=== PATIENT | male | born 1985 | race Caucasian/White ===

== ENCOUNTER 2018-12-11 19:43 | Emergency (ER) | payer OTHER, SELFPAY ==
[2018-12-11 19:45] VITALS: BP 143/98; PULSE 110; RESP 18; TEMP 38.3; O2SAT 100
[2018-12-11 19:58] VITALS: TEMP 38.3
[2018-12-11] MEDS: ACETAMINOPHEN 325 MG TABLET 975 MG PO (19:58)
[2018-12-11] MEDS: SODIUM CHLORIDE 0.9% 1,000 ML 1000 ML IV (19:59)
[2018-12-11 20:17] LABS: Add Manual Diff / Slide Review NO; Basophils Absolute Auto 0 /uL (0-100); Basophils Percent Auto 0.4 % (0-2); Eosinophils Absolute Auto 200 /uL (0-450); Eosinophils Percent Auto 1.8 % (2-4); Hematocrit 44.8 % (41-53); Hemoglobin 15.9 g/dL (13.5-17.5); Lymphocytes Absolute Auto 1400 /uL (1100-4500); Lymphocytes Percent Auto 15.4 % (25-40); Mean Corpuscular HGB Conc 35.6 % (30-36); Mean Corpuscular Hemoglobin 30.4 PG (26-34); Mean Corpuscular Volume 85.5 fL (80-100); Monocytes Absolute Auto 500 /uL (0-900); Monocytes Percent Auto 5.4 % (3-14); Neutrophils Absolute Auto 6800 /uL (1500-7000); Platelet Count 169 X10^3/uL (150-400); Red Blood Cell Count 5.24 X10^6/uL (4.5-5.9); White Blood Cell Count 8.8 X10^3/uL (4.5-11.0)
[2018-12-11 20:27] LABS: PTT Partial Thromboplastin Tim 31 SECONDS (26.4-36.2)
[2018-12-11 20:29] LABS: Alanine Aminotransferase 13 IU/L (21-72); Albumin 4.6 g/dL (3.5-5.0); Albumin Globulin Ratio 1.4 (1.0-2.8); Alkaline Phosphatase 49 U/L (38-126); Aspartate Aminotransferase 22 IU/L (17-59); Bilirubin Total 0.9 mg/dL (0.2-1.3); Blood Urea Nitrogen 16 mg/dL (9-20); Calcium 9.3 mg/dL (8.4-10.2); Carbon Dioxide 30 mmol/L (22-32); Chloride 99 mmol/L (98-107); Estimated Glomerular Filt Rate > 60.0 mL/min (>60); Globulin 3.4 g/dL (1.7-4.1); Glucose 95 mg/dL (70-100); HEMOLYSIS < 15 (0-50); Lipase 76 U/L (23-300); Potassium 3.8 mmol/L (3.4-5.1); Sodium 139 mmol/L (137-145)
[2018-12-11 20:30] LABS: Lactate (Lactic Acid) 0.8 mmol/L (0.7-2.1)
--- NOTE | 2018-12-11 20:30 | ED.FEVER ---
HPI - Fever General Chief Complaint: Fever Stated Complaint: hot and swollen rt knee x2 days Time Seen by Provider: 12/11/18 19:50 Source: patient Mode of arrival: ambulatory Limitations: no limitations History of Present Illness HPI Narrative: Patient is a 33-year-old male who presents with some right knee pain and redness. He says it started a couple days ago it actually has got a little bit better. He noticed that it is red and that he had fever today. He actually febrile here. He denies any injury. He is walking on it, it is not painful to walk on. He has no numbness or tingling. He has not been doing any sort of work on his knees. 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 complaint: fever Onset (ago): day(s) Related Data Previous Rx's Medication Instructions Recorded sulfamethoxazole-trimethoprim 1 tab PO BID 7 Days #14 tab 12/11/18 [Bactrim DS] Allergies Allergy/AdvReac Type Severity Reaction Status Date / Time No Known Drug Allergies Allergy Verified 12/11/18 19:53 Review of Systems Review of Systems ROS Unobtainable: All systems reviewed & are unremarkable except as noted in HPI and below Constitutional Denies chills, Reports fever(s), Denies lethargy and Denies weakness Eyes Denies change in vision, Denies eye discharge, Denies irritation and Denies loss of vision ENT Ears, Nose, Mouth, and Throat: Denies change in voice, Denies neck pain and Denies sore throat Cardiovascular Denies chest pain, Denies irregular heart rhythm, Denies lightheadedness, Denies palpitations, Denies dyspnea, Denies dyspnea on exertion and Denies orthopnea Respiratory Denies cough, Denies dyspnea, Denies dyspnea on exertion and Denies wheezing Gastrointestinal Gastrointestinal: Denies abdominal pain, Denies change in bowel habits, Denies diarrhea, Denies nausea and Denies vomiting Genitourinary Denies hematuria, Denies flank pain, Denies urinary incontinence and Denies urinary urgency Musculoskeletal Reports as per HPI and Denies neck pain Integumentary/Breasts Reports as per HPI and Reports erythema Neurologic Denies loss of vision and Denies weakness Endocrine Denies palpitations Allergic/Immunologic Denies wheezing [facility] Medical History Patient denies significant medical history (Acute) Social History Smoking Status: Never smoker Social History Smoking Status: Never smoker Exam Initial Vital Signs Initial Vital Signs: Vital Signs Temperature 101 F H 12/11/18 19:45 Pulse Rate 110 H 12/11/18 19:45 Respiratory Rate 18 12/11/18 19:45 Blood Pressure 143/98 H 12/11/18 19:45 Pulse Oximetry 100 12/11/18 19:45 GENERAL: Well-appearing, well-nourished and in no acute distress. HEENT: Head atraumatic,EOMI, pupils reactive, face symmetric CARDIOVASCULAR: Regular rate and rhythm without murmurs, rubs or gallops. RESPIRATORY: Breath sounds equal bilaterally, no wheezes rales or rhonchi. ABDOMEN: Soft, nontender. Normoactive bowel sounds all 4 quadrants. No guarding or rebound. EXTREMITIES: Normal range of motion, no clubbing or edema. Neurovascularly intact Right knee is minimally swollen it is erythematous he has full flexion and extension is not tender to touch peripheral pulses are intact. He is weight-bearing. NEUROLOGICAL: Alert and oriented x4.Normal gait and speech. Cranial nerves II through XII grossly intact. SKIN: Right knee erythema no fluctuation warm to touch no other rashes Course Orders Ordered: ED Orders 12/11/18 19:58 Complete Blood Count AUTO DIFF Stat Comprehensive Metabolic Panel Stat Lactate (Lactic Acid) Stat Lipase Stat Partial Thromboplastin Time Stat Procalcitonin Stat Prothrombin Time INR Stat 12/11/18 20:33 Blood Culture Stat Discontinued Medications Acetaminophen (Tylenol) 975 mg PO NOW ONE Stop: 12/11/18 19:51 Last Admin: 12/11/18 19:58 Dose: 975 mg Sodium Chloride (Normal Saline 0.9%) 1,000 mls @ 1,000 mls/hr IV BOLUS ONE Stop: 12/11/18 20:49 Last Infusion: 12/11/18 21:00 Dose: 0 mls/hr Admin: 12/11/18 19:59 Dose: 1,000 mls/hr Trimethoprim/Sulfamethoxazole (Bactrim Ds Prepack) 1 bottle MISC SEEINSTR ONE Stop: 12/11/18 20:49 Last Admin: 12/11/18 20:56 Dose: 1 bottle Vital Signs - 8 hr 12/11/18 19:45 12/11/18 19:58 12/11/18 21:00 Temperature 101 F H 101 F H 100.4 F H Pulse Rate 110 H 88 Respiratory Rate 18 17 Blood Pressure 143/98 H Blood Pressure [Left Arm] 118/78 Pulse Oximetry 100 98 MDM - Fever Lab Data Attestation: I reviewed the patient's lab results. Result diagrams: 12/11/18 19:58 12/11/18 19:58 Lab Results 12/11/18 12/11/18 12/11/18 Range/Units 19:58 19:58 19:58 WBC 8.8 (4.5-11.0) X10^3/uL RBC 5.24 (4.5-5.9) X10^6/uL Hgb 15.9 (13.5-17.5) g/dL Hct 44.8 (41-53) % MCV 85.5 (80-100) fL MCH 30.4 (26-34) PG MCHC 35.6 (30-36) % RDW 13.0 (11.6-14.8) % Plt Count 169 (150-400) X10^3/uL Neut % (Auto) 77.0 H (50-75) % Lymph % (Auto) 15.4 L (25-40) % [place] % (Auto) 5.4 (3-14) % Eos % (Auto) 1.8 L (2-4) % Baso % (Auto) 0.4 (0-2) % Neut # (Auto) 6800 (1778-6416) /uL Lymph # (Auto) 1400 (9291-2997) /uL [place] # (Auto) 500 (0-900) /uL Eos # (Auto) 200 (0-450) /uL Baso # (Auto) 0 (0-100) /uL PT 12.0 (10.1-12.7) SECONDS INR 1.0 (0.9-1.3) APTT 31 (26.4-36.2) SECONDS Sodium (137-145) mmol/L Potassium (3.4-5.1) mmol/L Chloride (98-107) mmol/L Carbon Dioxide (22-32) mmol/L BUN (9-20) mg/dL Creatinine (0.66-1.25) mg/dL Estimated GFR (>60) mL/min BUN/Creatinine Ratio (6-22) Glucose (70-100) mg/dL Lactate (0.7-2.1) mmol/L Calcium (8.4-10.2) mg/dL Total Bilirubin (0.2-1.3) mg/dL AST (17-59) IU/L ALT (21-72) IU/L Alkaline Phosphatase (38-126) U/L Total Protein (6.3-8.2) g/dL Albumin (3.5-5.0) g/dL Globulin (1.7-4.1) g/dL Albumin/Globulin Ratio (1.0-2.8) Lipase (23-300) U/L Procalcitonin 0.11 (<0.5) ng/mL 12/11/18 12/11/18 Range/Units 19:58 19:58 WBC (4.5-11.0) X10^3/uL RBC (4.5-5.9) X10^6/uL Hgb (13.5-17.5) g/dL Hct (41-53) % MCV (80-100) fL MCH (26-34) PG MCHC (30-36) % RDW (11.6-14.8) % Plt Count (150-400) X10^3/uL Neut % (Auto) (50-75) % Lymph % (Auto) (25-40) % [place] % (Auto) (3-14) % Eos % (Auto) (2-4) % Baso % (Auto) (0-2) % Neut # (Auto) (0543-0868) /uL Lymph # (Auto) (4438-4162) /uL [place] # (Auto) (0-900) /uL Eos # (Auto) (0-450) /uL Baso # (Auto) (0-100) /uL PT (10.1-12.7) SECONDS INR (0.9-1.3) APTT (26.4-36.2) SECONDS Sodium 139 (137-145) mmol/L Potassium 3.8 (3.4-5.1) mmol/L Chloride 99 (98-107) mmol/L Carbon Dioxide 30 (22-32) mmol/L BUN 16 (9-20) mg/dL Creatinine 1.00 (0.66-1.25) mg/dL Estimated GFR > 60.0 (>60) mL/min BUN/Creatinine Ratio 16.0 (6-22) Glucose 95 (70-100) mg/dL Lactate 0.8 (0.7-2.1) mmol/L Calcium 9.3 (8.4-10.2) mg/dL Total Bilirubin 0.9 (0.2-1.3) mg/dL AST 22 (17-59) IU/L ALT 13 L (21-72) IU/L Alkaline Phosphatase 49 (38-126) U/L Total Protein 8.0 (6.3-8.2) g/dL Albumin 4.6 (3.5-5.0) g/dL Globulin 3.4 (1.7-4.1) g/dL Albumin/Globulin Ratio 1.4 (1.0-2.8) Lipase 76 (23-300) U/L Procalcitonin (<0.5) ng/mL MDM Narrative Medical decision making narrative: At this time this does not appear to be septic knee nor is he septic. He has normal blood pressure heart rate was slightly elevated with an elevated temperature. Normal WBC and normal lactic acid. He is able to move his knee and ambulate easily. This seems to be more of a cellulitis. At this time outpatient oral antibiotics indicated. No imaging indicated. Discharge Plan Departure Patient Disposition: Home Clinical Impression: Cellulitis of knee, right Discharge Date/Time: 12/11/18 21:02 Interventions: ED Discharge Assessment Last Done: 12/11/18 21:01 Instructions: DI for Cellulitis -- Adult Activity Restrictions/Additional Instructions: *You have been diagnosed with cellulitis of right knee *What to do: At this time he does not appear that the knee itself is infected I believe this to be the skin only. *Continue to take medications as directed Bactrim 1 tablet twice a day for 7 days *Follow up with your primary care provider in 2-3 days *Return to ER if you should have inability to bear weight, not able to move need, increasing redness worsening pain fever not controlled or any new, worsening or concerning symptoms Prescriptions: New sulfamethoxazole-trimethoprim [Bactrim DS] 800-160 mg tablet 1 tab PO BID 7 Days Qty: 14 RF: 0
--- NOTE | 2018-12-11 20:33 | ED_ITS ---
HPI - Fever General Chief Complaint: Fever Stated Complaint: hot and swollen rt knee x2 days Time Seen by Provider: 12/11/18 19:50 Source: patient Mode of arrival: ambulatory Limitations: no limitations History of Present Illness HPI Narrative: Patient is a 33-year-old male who presents with some right knee pain and redness. He says it started a couple days ago it actually has got a little bit better. He noticed that it is red and that he had fever today. He actually febrile here. He denies any injury. He is walking on it, it is not painful to walk on. He has no numbness or tingling. He has not been doing any sort of work on his knees. 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 complaint: fever Onset (ago): day(s) Related Data Previous Rx's Medication Instructions Recorded sulfamethoxazole-trimethoprim 1 tab PO BID 7 Days #14 tab 12/11/18 [Bactrim DS] Allergies Allergy/AdvReac Type Severity Reaction Status Date / Time No Known Drug Allergies Allergy Verified 12/11/18 19:53 Review of Systems Review of Systems ROS Unobtainable: All systems reviewed & are unremarkable except as noted in HPI and below Constitutional Denies chills, Reports fever(s), Denies lethargy and Denies weakness Eyes Denies change in vision, Denies eye discharge, Denies irritation and Denies loss of vision ENT Ears, Nose, Mouth, and Throat: Denies change in voice, Denies neck pain and Denies sore throat Cardiovascular Denies chest pain, Denies irregular heart rhythm, Denies lightheadedness, Denies palpitations, Denies dyspnea, Denies dyspnea on exertion and Denies orthopnea Respiratory Denies cough, Denies dyspnea, Denies dyspnea on exertion and Denies wheezing Gastrointestinal Gastrointestinal: Denies abdominal pain, Denies change in bowel habits, Denies diarrhea, Denies nausea and Denies vomiting Genitourinary Denies hematuria, Denies flank pain, Denies urinary incontinence and Denies urinary urgency Musculoskeletal Reports as per HPI and Denies neck pain Integumentary/Breasts Reports as per HPI and Reports erythema Neurologic Denies loss of vision and Denies weakness Endocrine Denies palpitations Allergic/Immunologic Denies wheezing [facility] Medical History Patient denies significant medical history (Acute) Social History Smoking Status: Never smoker Social History Smoking Status: Never smoker Exam Initial Vital Signs Initial Vital Signs: Vital Signs Temperature 101 F H 12/11/18 19:45 Pulse Rate 110 H 12/11/18 19:45 Respiratory Rate 18 12/11/18 19:45 Blood Pressure 143/98 H 12/11/18 19:45 Pulse Oximetry 100 12/11/18 19:45 GENERAL: Well-appearing, well-nourished and in no acute distress. HEENT: Head atraumatic,EOMI, pupils reactive, face symmetric CARDIOVASCULAR: Regular rate and rhythm without murmurs, rubs or gallops. RESPIRATORY: Breath sounds equal bilaterally, no wheezes rales or rhonchi. ABDOMEN: Soft, nontender. Normoactive bowel sounds all 4 quadrants. No guarding or rebound. EXTREMITIES: Normal range of motion, no clubbing or edema. Neurovascularly intact Right knee is minimally swollen it is erythematous he has full flexion and extension is not tender to touch peripheral pulses are intact. He is weight- bearing. NEUROLOGICAL: Alert and oriented x4.Normal gait and speech. Cranial nerves II through XII grossly intact. SKIN: Right knee erythema no fluctuation warm to touch no other rashes Course Orders Ordered: ED Orders 12/11/18 19:58 Complete Blood Count AUTO DIFF Stat Comprehensive Metabolic Panel Stat Lactate (Lactic Acid) Stat Lipase Stat Partial Thromboplastin Time Stat Procalcitonin Stat Prothrombin Time INR Stat 12/11/18 20:33 Blood Culture Stat Discontinued Medications Acetaminophen (Tylenol) 975 mg PO NOW ONE Stop: 12/11/18 19:51 Last Admin: 12/11/18 19:58 Dose: 975 mg Sodium Chloride (Normal Saline 0.9%) 1,000 mls @ 1,000 mls/hr IV BOLUS ONE Stop: 12/11/18 20:49 Last Infusion: 12/11/18 21:00 Dose: 0 mls/hr Admin: 12/11/18 19:59 Dose: 1,000 mls/hr Trimethoprim/Sulfamethoxazole (Bactrim Ds Prepack) 1 bottle MISC SEEINSTR ONE Stop: 12/11/18 20:49 Last Admin: 12/11/18 20:56 Dose: 1 bottle Vital Signs - 8 hr 12/11/18 19:45 12/11/18 19:58 12/11/18 21:00 Temperature 101 F H 101 F H 100.4 F H Pulse Rate 110 H 88 Respiratory Rate 18 17 Blood Pressure 143/98 H Blood Pressure [Left Arm] 118/78 Pulse Oximetry 100 98 MDM - Fever Lab Data Attestation: I reviewed the patient's lab results. Result diagrams: 12/11/18 19:58 12/11/18 19:58 Lab Results 12/11/18 12/11/18 12/11/18 Range/Units 19:58 19:58 19:58 WBC 8.8 (4.5-11.0) X10^3/uL RBC 5.24 (4.5-5.9) X10^6/uL Hgb 15.9 (13.5-17.5) g/dL Hct 44.8 (41-53) % MCV 85.5 (80-100) fL MCH 30.4 (26-34) PG MCHC 35.6 (30-36) % RDW 13.0 (11.6-14.8) % Plt Count 169 (150-400) X10^3/uL Neut % (Auto) 77.0 H (50-75) % Lymph % (Auto) 15.4 L (25-40) % [place] % (Auto) 5.4 (3-14) % Eos % (Auto) 1.8 L (2-4) % Baso % (Auto) 0.4 (0-2) % Neut # (Auto) 6800 (4858-5102) /uL Lymph # (Auto) 1400 (9624-6211) /uL [place] # (Auto) 500 (0-900) /uL Eos # (Auto) 200 (0-450) /uL Baso # (Auto) 0 (0-100) /uL PT 12.0 (10.1-12.7) SECONDS INR 1.0 (0.9-1.3) APTT 31 (26.4-36.2) SECONDS Sodium (137-145) mmol/L Potassium (3.4-5.1) mmol/L Chloride (98-107) mmol/L Carbon Dioxide (22-32) mmol/L BUN (9-20) mg/dL Creatinine (0.66-1.25) mg/dL Estimated GFR (>60) mL/min BUN/Creatinine Ratio (6-22) Glucose (70-100) mg/dL Lactate (0.7-2.1) mmol/L Calcium (8.4-10.2) mg/dL Total Bilirubin (0.2-1.3) mg/dL AST (17-59) IU/L ALT (21-72) IU/L Alkaline Phosphatase (38-126) U/L Total Protein (6.3-8.2) g/dL Albumin (3.5-5.0) g/dL Globulin (1.7-4.1) g/dL Albumin/Globulin Ratio (1.0-2.8) Lipase (23-300) U/L Procalcitonin 0.11 (<0.5) ng/mL 12/11/18 12/11/18 Range/Units 19:58 19:58 WBC (4.5-11.0) X10^3/uL RBC (4.5-5.9) X10^6/uL Hgb (13.5-17.5) g/dL Hct (41-53) % MCV (80-100) fL MCH (26-34) PG MCHC (30-36) % RDW (11.6-14.8) % Plt Count (150-400) X10^3/uL Neut % (Auto) (50-75) % Lymph % (Auto) (25-40) % [place] % (Auto) (3-14) % Eos % (Auto) (2-4) % Baso % (Auto) (0-2) % Neut # (Auto) (1394-2833) /uL Lymph # (Auto) (9378-8495) /uL [place] # (Auto) (0-900) /uL Eos # (Auto) (0-450) /uL Baso # (Auto) (0-100) /uL PT (10.1-12.7) SECONDS INR (0.9-1.3) APTT (26.4-36.2) SECONDS Sodium 139 (137-145) mmol/L Potassium 3.8 (3.4-5.1) mmol/L Chloride 99 (98-107) mmol/L Carbon Dioxide 30 (22-32) mmol/L BUN 16 (9-20) mg/dL Creatinine 1.00 (0.66-1.25) mg/dL Estimated GFR > 60.0 (>60) mL/min BUN/Creatinine Ratio 16.0 (6-22) Glucose 95 (70-100) mg/dL Lactate 0.8 (0.7-2.1) mmol/L Calcium 9.3 (8.4-10.2) mg/dL Total Bilirubin 0.9 (0.2-1.3) mg/dL AST 22 (17-59) IU/L ALT 13 L (21-72) IU/L Alkaline Phosphatase 49 (38-126) U/L Total Protein 8.0 (6.3-8.2) g/dL Albumin 4.6 (3.5-5.0) g/dL Globulin 3.4 (1.7-4.1) g/dL Albumin/Globulin Ratio 1.4 (1.0-2.8) Lipase 76 (23-300) U/L Procalcitonin (<0.5) ng/mL MDM Narrative Medical decision making narrative: At this time this does not appear to be septic knee nor is he septic. He has normal blood pressure heart rate was slightly elevated with an elevated temperature. Normal WBC and normal lactic acid. He is able to move his knee and ambulate easily. This seems to be more of a cellulitis. At this time outpatient oral antibiotics indicated. No imaging indicated. Discharge Plan Departure Patient Disposition: Home Clinical Impression: Cellulitis of knee, right Discharge Date/Time: 12/11/18 21:02 Interventions: ED Discharge Assessment Last Done: 12/11/18 21:01 Instructions: DI for Cellulitis -- Adult Activity Restrictions/Additional Instructions: *You have been diagnosed with cellulitis of right knee *What to do: At this time he does not appear that the knee itself is infected I believe this to be the skin only. *Continue to take medications as directed Bactrim 1 tablet twice a day for 7 days *Follow up with your primary care provider in 2-3 days *Return to ER if you should have inability to bear weight, not able to move need, increasing redness worsening pain fever not controlled or any new, worsen ing or concerning symptoms Prescriptions: New sulfamethoxazole-trimethoprim [Bactrim DS] 800-160 mg tablet 1 tab PO BID 7 Days Qty: 14 RF: 0
[2018-12-11 20:45] LABS: Procalcitonin 0.11 ng/mL (<0.5)
[2018-12-11] MEDS: TRIMETH/SULFA 160/800 PREPACK 1 BOTTLE MISC (20:56)
[2018-12-11 21:00] VITALS: BP 118/78; PULSE 88; RESP 17; TEMP 38; O2SAT 98
== END 2018-12-11 21:02 | disposition home or self-care (01) ==
PROVIDERS: Emergency Provider Emergency Medicine
DX: L03.115 Cellulitis of right lower limb (principal)
CPT/HCPCS: 36415; 36591; 80053; 83605; 83690; 84145; 85025; 85610; 85730; 87040; 96360; 99283

== ENCOUNTER → 2020-10-23 10:17 | Outpatient (CLI) | payer OTHER, SELFPAY ==
--- NOTE | 2020-10-23 | DI.CT.S_ITS ---
PROCEDURE: CT SINUS SCREEN WO CON INDICATIONS: Chronic pansinusitis TECHNIQUE: Noncontrast 3.0 mm axial images acquired from the frontal sinuses to the mid-sella, with coronal and sagittal reformats. For radiation dose reduction, the following was used: automated exposure control, adjustment of mA and/or kV according to patient size. COMPARISON: None. FINDINGS: Image quality: Excellent. Maxillary Sinuses: No bony remodeling or destruction. Sinuses are clear. Ethmoid Air Cells: No bony remodeling or destruction. Sinuses are clear. Sphenoid Sinuses: No bony remodeling or destruction. Sinuses are clear. Frontal Sinuses: No bony remodeling or destruction. Sinuses are clear. Ostiomeatal Complexes: Ostiomeatal complexes are patent. No Lewis cells. Miscellaneous: Visualized intra-orbital contents are normal. No price bullosa or paradoxical turbinate curvature. Mild S-shaped deviation of the nasal septum with mild spurring at the level of the inferior nasal turbinate. IMPRESSION: No findings of acute or chronic sinusitis. Dictated by: Link Mims M.D. on 10/23/2020 at 11:01 Approved by: Link Mims M.D. on 10/23/2020 at 11:02
== END ==
PROVIDERS: PCP Internal Medicine; Referring Provider Otolaryngology; Visit Provider Otolaryngology
DX: J32.4 Chronic pansinusitis (principal)
CPT/HCPCS: 70486

== ENCOUNTER 2022-06-20 11:26 | Emergency (ER) | payer OTHER, SELFPAY ==
--- NOTE | 2022-06-20 11:34 | DI.RAD.S_ITS ---
PROCEDURE: XR CLAVICLE RT INDICATIONS: injury/defomirty TECHNIQUE: 2 views of the clavicle were acquired. COMPARISON: None. FINDINGS: Bones: Acute comminuted fracture involving mid clavicular shaft is seen with up to 2.8 cm depression of distal clavicular shaft. No other fracture or dislocation is seen. No suspicious bony lesions. Soft tissues: No suspicious soft tissue calcifications. IMPRESSION: Acute comminuted and depressed mid right clavicular shaft fracture. Dictated by: Kareem Kevin M.D. on 06/20/2022 at 11:57 Approved by: Kareem Kevin M.D. on 06/20/2022 at 11:58
[2022-06-20 11:36] VITALS: BP 151/78; PULSE 89; RESP 17; TEMP 36.7; O2SAT 99; BMI 26.4
--- NOTE | 2022-06-20 11:41 | ED_ITS ---
HPI - Trauma General Chief Complaint: Extremity Injury, Upper Stated Complaint: dislocated shoulder Time Seen by Provider: 06/20/22 11:41 Source: patient Mode of arrival: Ambulatory Limitations: no limitations History of Present Illness HPI narrative: This is a 36-year-old male with no reported medical issues. Patient was playing soccer when he slid/fell. He had immediate pain in his right shoulder region. He is obvious deformity. He states pain radiates down his arm and hurts with any sort of movement of the arm. Patient denies any numbness, he states no weakness or decreased artificial candy maker. He can move at the elbow and wrist but states it hurts at the shoulder clavicle region. Patient denies any daily medications. Denies any prior surgeries. No known drug allergies. No tobacco, 1 alcoholic drink daily, no illicit. 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 Related Data Previous Rx's Medication Instructions Recorded hydrocodone 5 mg-acetaminophen 325 1 tab PO Q6H PRN pain #14 tabs 06/20/22 mg tablet Allergies Allergy/AdvReac Type Severity Reaction Status Date / Time No Known Drug Allergies Allergy Verified 12/11/18 19:53 Review of Systems Review of Systems ROS Unobtainable: All systems reviewed & are unremarkable except as noted in HPI and below Patient History Medical History Patient denies significant medical history Social History Smoking Status: Never smoker Smoking Status: Never smoker alcohol intake frequency: 0-2 drinks per day Substance Use Type: does not use Exam Narrative Exam Narrative: GENERAL: Alert and oriented x three, well-nourished male in mild distress. HEENT: Head normocephalic, atraumatic, EOMI, pupils reactive, face symmetric, moist mucous membranes NECK: Supple, full range of motion CARDIOVASCULAR: Regular rate and rhythm without murmurs, rubs or gallops. RESPIRATORY: Breath sounds equal bilaterally, no wheezes rales or rhonchi. ABDOMEN: Soft, nontender. Normoactive bowel sounds all 4 quadrants. No guarding or rebound, rigidity, no mass : No CVA tenderness EXTREMITIES: Decreased range of motion right upper extremity, normal motion with the fingers, wrist, elbow patient has pain with any sort of movement at the shoulder but has obvious deformity what appears to be mid shaft clavicle. No clubbing or edema. Neurovascularly intact. Patient has slightly decreased cap refill that is equal in bilateral hands, patient states this is normal for him. 2+ radial pulses bilaterally. Patient has sensation to all 5 fingers in upper extremity with palpation. Normal adduction and abduction, flexion extension at the wrist. NEUROLOGICAL: Cranial nerves II through XII grossly intact. Moving all extremities SKIN: Warm, dry, no petechiae, no rashes or lesions. Initial Vital Signs Initial Vital Signs: Vital Signs Temperature 98.1 F 06/20/22 11:36 Pulse Rate 89 06/20/22 11:36 Respiratory Rate 17 06/20/22 11:36 Blood Pressure 151/78 H 06/20/22 11:36 Pulse Oximetry 99 06/20/22 11:36 Oxygen Delivery Method 06/20/22 11:36 Course Orders Ordered: ED Orders 06/20/22 11:34 XR clavicle RT Stat 06/20/22 11:41 Chest [XR chest 1V] Stat Discontinued Medications Hydrocodone Bitart/Acetaminophen (Hydrocodone/Acet 5/325 Tablet) 1 tab PO NOW ONE Stop: 06/20/22 11:42 Last Admin: 06/20/22 11:48 Dose: 1 tab Documented By: KB Consultations Consultation #1: Liat, orthopedic surgery. Reviewed images there is obvious deformity, there is not necrotic skin changes but there is some mild tenting. Discussed his findings from today he is otherwise neurovascularly intact. Discussed whether appropriate for surgery today verses urgently. Dr. Kevin feels patient is appropriate to see Dr. Rachel hernández tomorrow or the next day in the office. Vital Signs Vital signs: Vital Signs - 8 hr 06/20/22 11:36 06/20/22 13:16 Temperature 98.1 F Pulse Rate 89 96 H Respiratory Rate 17 16 Blood Pressure 151/78 H 134/84 Pulse Oximetry 99 98 Oxygen Delivery Method Room Air Room Air MDM - Trauma Imaging Data Extremity x-ray #1: Radiologist's Impression: Se Mares??36??M??1985 ? Allergy/Adv: No Known Drug Allergies Close Chest X-Ray (Signed) Kareem Kevin - 06/20/22 Clavicle X-Ray (Signed) Kareem Kevin - 06/20/[address] (Signed) Link Mims - 10/23/20 Chest X-Ray (Signed) Araceli Espinopatricia - 02/09/18 [facility] [address] XRay Report Signed Patient: Se Mares MR#: [id number] : 1985 Acct:[id number] Age/Sex: 36 / M Date of Service: 06/20/22 Loc: ED Accession Number: [id number] ?? Procedure: XR clavicle RT Ordering Provider: Cata Preciado D.O. PROCEDURE:? XR CLAVICLE RT ? INDICATIONS:? injury/defomirty ? TECHNIQUE:? 2 views of the clavicle were acquired.? ? COMPARISON:? None. ? FINDINGS:? ? Bones:? Acute comminuted fracture involving mid clavicular shaft is seen with up to 2.8 cm depression of distal clavicular shaft.? No other fracture or dislocation is seen.? No suspicious bony lesions.? ? Soft tissues:? No suspicious soft tissue calcifications.? ? IMPRESSION:? Acute comminuted and depressed mid right clavicular shaft fracture. ? ? Dictated by: Kareem Kevin M.D. on 06/20/2022 at 11:57 ? ? Approved by: Kareem Kevin M.D. on 06/20/2022 at 11:58?? Chest x-ray: Radiologist's Impression: [address] [address] XRay Report Signed Patient: Se Mares MR#: [id number] : 1985 Acct:[id number] Age/Sex: 36 / M Date of Service: 06/20/22 Loc: ED Accession Number: [id number] ?? Procedure: XR chest 1V Ordering Provider: Cata Preciado D.O. PROCEDURE:? XR CHEST 1V ? INDICATIONS:? suspected clavicle fx, appears tented ? TECHNIQUE:? One view of the chest was acquired.? ? COMPARISON:? [facility], CR, XR CHEST 2V, 02/09/2018, 14:54. ? FINDINGS:? ? Surgical changes and devices:? None.? ? Lungs and pleura:? Lungs are clear.? No pleural effusions or pneumothorax.? ? Mediastinum:? Mediastinal contours appear normal.? Heart size is normal.? ? Bones and chest wall:? Acute comminuted and depressed right mid clavicular shaft fracture is seen.? No suspicious bony lesions.? Overlying soft tissues appear unremarkable.? ? IMPRESSION:? No acute cardiopulmonary pathology.? Right mid clavicular shaft fracture. ? ? Dictated by: Kareem Kevin M.D. on 06/20/2022 at 11:58 ? ? Approved by: Kareem Kevin M.D. on 06/20/2022 at 11:59?? MDM Narrative Medical decision making narrative: Patient comes with obvious deformity of his clavicle, x-ray shows clavicle fracture with a portion that will clearly require surgery at some point. He has some mild tenting but no significant changes to the skin it is actually improved a little bit after sling. Discussed with Orthopedic surgery plan surgery with Dr. Esposito urgently but they do not feel he requires surgery today although we did discuss the changes. Patient had improvement with discomfort with oral pain medication was given a script. Patient continues to be neurovascularly intact. Discharge Plan Departure Patient Disposition: Home Clinical Impression: Fracture of clavicle Instructions: DI for Clavicle Fracture-Adult Activity Restrictions/Additional Instructions: Follow-up with orthopedic surgery, call the office to follow up with Dr. Kumar. Call tomorrow morning let them know that you need to be seen for surgery for your clavicle fracture and that Dr. eKvin the on-call orthopedic surgeon said you need to be seen. You can wear the sling as needed for comfort can also take some of the stress off that region. You can take 1-2 tablets of [place] every 6 hours as needed. You can take Tylenol instead of [place] up to 650 mg every 6 hours. You can use ice to the affected area. Prescription sent to [facility] in [place]. OK to use ice pack on the affected body part. Use for 15-20 minutes each time, for 5-6x per day. If you develop worsening pain, numbness, tingling, discoloration of the affected body part, urgent re-assessment, or return to the Emergency Department. Return to the Emergency Department for any new or worsening symptoms. Prescriptions: New hydrocodone-acetaminophen 5-325 mg tablet 1 tab PO Q6H PRN (Reason: pain) Qty: 14 0RF Referrals: Zachery Kumar MD [Physician] - Dusty Weinberg MD [Primary Care Provider] - Stand Alone Forms: Patient Portal/API
--- NOTE | 2022-06-20 11:41 | DI.RAD.S_ITS ---
PROCEDURE: XR CHEST 1V INDICATIONS: suspected clavicle fx, appears tented TECHNIQUE: One view of the chest was acquired. COMPARISON: [facility], CR, XR CHEST 2V, 02/09/2018, 14:54. FINDINGS: Surgical changes and devices: None. Lungs and pleura: Lungs are clear. No pleural effusions or pneumothorax. Mediastinum: Mediastinal contours appear normal. Heart size is normal. Bones and chest wall: Acute comminuted and depressed right mid clavicular shaft fracture is seen. No suspicious bony lesions. Overlying soft tissues appear unremarkable. IMPRESSION: No acute cardiopulmonary pathology. Right mid clavicular shaft fracture. Dictated by: Kareem Kevin M.D. on 06/20/2022 at 11:58 Approved by: Kareem Kevin M.D. on 06/20/2022 at 11:59
[2022-06-20] MEDS: HYDROCODONE/ACET 5/325 TABLET 1 TAB PO (11:48)
[2022-06-20 13:16] VITALS: BP 134/84; PULSE 96; RESP 16; O2SAT 98
== END 2022-06-20 13:17 | disposition home or self-care (01) ==
PROVIDERS: Emergency Provider Emergency Medicine; PCP Internal Medicine
DX: S42.021A Displaced fracture of shaft of right clavicle, initial encounter for closed fracture (principal); W18.30XA Fall on same level, unspecified, initial encounter; Y93.66 Activity, soccer
CPT/HCPCS: 71045; 73000; 99283; 99284

== ENCOUNTER 2022-06-24 14:45 | Emergency (ER) | payer OTHER, SELFPAY ==
[2022-06-24 14:54] VITALS: BP 140/75; PULSE 80; RESP 18; TEMP 37.1; O2SAT 99; BMI 25.0
--- NOTE | 2022-06-24 14:58 | ED.RECABL ---
HPI - Recheck/Abnormal Lab/Rx General Chief Complaint: Recheck/Abnormal Lab/Rx Stated Complaint: broken bianca bone, bruising and pain, needs pain me Time Seen by Provider: 06/24/22 14:55 Source: patient Mode of arrival: Ambulatory History of Present Illness HPI narrative: This is a 36-year-old male seen by myself on June 20 with clavicle fracture. Patient followed up with Orthopedic surgery he is scheduled for surgery on the . He is since run out of pain medication. Patient states he was told they would refill prescription after surgery but not before. Patient states no new numbness, tingling. He noticed some yellow discoloration over the area but no other changes. Patient states was taking 1 tablet of [place] every 6 hours which was doing very well for pain control. Patient does not have other medical issues. No known drug allergies. Related Data Previous Rx's Medication Instructions Recorded hydrocodone 5 mg-acetaminophen 325 1 tab PO Q6H PRN pain #14 tabs 06/20/22 mg tablet hydrocodone 5 mg-acetaminophen 325 1 tab PO Q6H PRN pain #25 tabs 06/24/22 mg tablet Allergies Allergy/AdvReac Type Severity Reaction Status Date / Time No Known Drug Allergies Allergy Verified 12/11/18 19:53 Review of Systems Review of Systems ROS Unobtainable: All systems reviewed & are unremarkable except as noted in HPI and below Patient History Medical History (Updated 06/24/22 @ 15:01 by Cata Preciado DO) Patient denies significant medical history Social History Smoking Status: Never smoker Smoking Status: Never smoker alcohol intake frequency: 0-2 drinks per day Substance Use Type: does not use Exam Narrative Exam Narrative: GENERAL: Alert and oriented x three, mild distress. HEENT: Head normocephalic, atraumatic, EOMI, pupils reactive, face symmetric, moist mucous membranes NECK: Supple, full range of motion CARDIOVASCULAR: Regular rate and rhythm without murmurs, rubs or gallops. RESPIRATORY: Breath sounds equal bilaterally, no wheezes rales or rhonchi. EXTREMITIES: Patient right arm is in sling 2+ radial pulse normal movement at the wrist, no changes flexion extension, normal adduction and abduction. Patient has cap refill less than 2 seconds in all 5 fingers. No clubbing or edema. Neurovascularly intact. Patient does have deformity at the clavicle does not appear necrotic there is some slight yellowish discoloration consistent with bruising with very scant ecchymosis about 2 cm below but not over the site of deformity. NEUROLOGICAL: Cranial nerves II through XII grossly intact. Moving all extremities SKIN: Warm, dry, no petechiae, no rashes or lesions. Initial Vital Signs Initial Vital Signs: Vital Signs Temperature 98.7 F 06/24/22 14:54 Pulse Rate 80 06/24/22 14:54 Respiratory Rate 18 06/24/22 14:54 Blood Pressure 140/75 06/24/22 14:54 Pulse Oximetry 99 06/24/22 14:54 Oxygen Delivery Method 06/24/22 14:54 Course Vital Signs Vital signs: Vital Signs - 8 hr 06/24/22 14:54 Temperature 98.7 F Pulse Rate 80 Respiratory Rate 18 Blood Pressure 140/75 Pulse Oximetry 99 Oxygen Delivery Method Room Air MDM - Recheck/Abnormal Lab/Rx MDM Narrative Medical decision making narrative: This is a 36-year-old male seen by myself for clavicle fracture. Patient had obvious displacement and is requiring surgery. He saw orthopedic surgery who declined to refill his narcotic pain medications until after his surgery. He is not scheduled until the and has since run out of the tablets sent by myself. Patient is neurovascularly intact. Does not appear to have rapidly worsening symptoms or changes. Discharge Plan Departure Patient Disposition: Home Clinical Impression: Fracture of clavicle Instructions: DI for Clavicle Fracture-Adult Activity Restrictions/Additional Instructions: I hope your surgery goes well on the with Dr. Kumar. You can take 1 tablet every 6 hours as needed for pain. This medication can make you sleepy do not drive, perform hazardous activities or make any major decisions while taking it. This medication will make you constipated please take a stool softener once to twice daily until stools are soft and regular. A stool softener such as Colace once or twice daily for having any constipation could be helpful. Prescription sent to [facility] in [place]. Please return for new numbness, tingling weakness any sign of necrosis of the skin over the area deformity, if it is turning very white, purple were appears like it is going to poke through the skin, new chest pain or shortness of breath or other new or concerning changes. Prescriptions: New hydrocodone-acetaminophen 5-325 mg tablet 1 tab PO Q6H PRN (Reason: pain) Qty: 25 0RF No Action hydrocodone-acetaminophen 5-325 mg tablet 1 tab PO Q6H PRN (Reason: pain) Qty: 14 0RF Referrals: Dusty Weinberg MD [Primary Care Provider] - Stand Alone Forms: Patient Portal/API
== END 2022-06-24 15:07 | disposition home or self-care (01) ==
PROVIDERS: Emergency Provider Emergency Medicine; PCP Internal Medicine
DX: S42.001A Fracture of unspecified part of right clavicle, initial encounter for closed fracture (principal); Z76.0 Encounter for issue of repeat prescription
CPT/HCPCS: 99281